=== PATIENT | male | born 1970 | race American Indian/Alaskan Native ===

== ENCOUNTER 2018-02-23 06:20 | Day surgery (SDC) | payer BC ==
[2018-02-23] MEDS ORDERED: NACL 0.9% 1000 ML 1,000 ML ONE (06:53)
[2018-02-23] MEDS ORDERED: WATER FOR IRRIG STERILE IR ONE (07:18)
[2018-02-23] MEDS ORDERED: WATER FOR IRRIG STERILE ONE (07:18)
[2018-02-23] MEDS ORDERED: NACL 0.9% 1000 ML 1,000 ML IV SCH (08:00)
--- NOTE | 2018-02-23 08:38 | Anesthesia Consultation ---
Anesthesia Consult and Med Hx Date of service: 02/23/18 - Airway Anesthetic Teeth Evaluation: Good ROM Head & Neck: Adequate Mental/Hyoid Distance: Adequate Mallampati Class: Class III Intubation Access Assessment: Possibly Difficult - Pulmonary Exam CTA: Yes - Cardiac Exam Cardiac Exam: RRR - Pre-Operative Health Status ASA Pre-Surgery Classification: ASA3 - Pre-Anesthesia Comment Pre-Anesthesia Comments: Fabián held 02/20/18 - Pulmonary Hx Sleep Apnea: Yes - Cardiovascular System Hx Peripheral Vascular Disease: Yes (DVT) - Central Nervous System Hx Seizures: Yes (childhood ) - Gastrointestinal Hx Ulcer: Yes - Endocrine Hx Insulin Dependent Diabetes: Yes - Other Systems Hx Obesity: Yes
--- NOTE | 2018-02-23 08:38 | Anesthesia Day of Surgery ---
Anesthesia Day of Surgery - Day of Surgery Patient Examined: Yes Patient H&P Reviewed: Yes Patient is NPO: Yes
[2018-02-23] MEDS ORDERED: DIPRIVAN 10 MG/ML IV ONE ×3 (08:42)
--- NOTE | 2018-02-23 09:06 | Short Stay Summary ---
Short Stay Documentation - Allergies and Medications Current Medications: Allergies No Known Allergies Allergy (Verified 02/22/18 09:19) Home Medications Medication Instructions Recorded Confirmed Last Taken Type Eliquis 5 mg PO BID 02/22/18 02/22/18 Unknown History Oscal 1 tab PO DAILY 02/22/18 02/22/18 Unknown History Vitamin D3 1 tab PO DAILY 02/22/18 02/22/18 Unknown History metFORMIN 500 mg PO BID 02/22/18 02/22/18 Unknown History Active Medications Sodium Chloride (Nacl 0.9% 1000 Ml) 1,000 mls @ 50 mls/hr IV DIRECT EDWIN Last Admin: 02/23/18 07:53 Dose: 50 mls/hr - Brief post op/procedure progress note Date of procedure: 02/23/18 Pre-op diagnosis: Colon cancer screening Post-op diagnosis: same Procedure: Colonoscopy Anesthesia: MAC Findings: as above Surgeon: CHRIS CHURCHILL Estimated blood loss: none Pathology: none Condition: stable - Disposition Condition at discharge: Stable Disposition: DC-01 TO HOME OR SELFCARE Short Stay Discharge Plan Activity: no restrictions Weight Bearing Status: Full Weight Bearing Diet: regular, low fat, low salt Follow up with: MAI WRAY MD [Primary Care Provider] - 7 Days
[2018-02-23 09:26] VITALS: BP 116/67
== END 2018-02-23 06:21 | disposition home or self-care (01) ==
LOC: GIO 06:20
PROVIDERS: ATTEND Internal Medicine Gastroenterology
DX: Z12.11 Encounter for screening for malignant neoplasm of colon (principal); K64.0 First degree hemorrhoids; I25.2 Old myocardial infarction; J45.909 Unspecified asthma, uncomplicated; G47.30 Sleep apnea, unspecified; E11.9 Type 2 diabetes mellitus without complications; K21.9 Gastro-esophageal reflux disease without esophagitis; E66.9 Obesity, unspecified; Z68.44 Body mass index [BMI] 60.0-69.9, adult; Z79.84 Long term (current) use of oral hypoglycemic drugs; Z79.899 Other long term (current) drug therapy; Z86.718 Personal history of other venous thrombosis and embolism; Z98.890 Other specified postprocedural states
CPT/HCPCS: 45378; 82962; J2704; J7030

== ENCOUNTER 2019-04-05 05:53 | Day surgery (SDC) | payer BC ==
[2019-04-05] MEDS ORDERED: SODIUM CHLORIDE 0.9% 1000 ML 1,000 ML IV SCH ×2 (06:00)
[2019-04-05] MEDS ORDERED: PROPOFOL 200 MG/20 ML VIAL IV ONE ×4 (07:11→07:57)
[2019-04-05] MEDS ORDERED: WATER FOR IRRIG STERILE 250 ML BOTTLE IR ONE (07:41)
--- NOTE | 2019-04-05 08:17 | Short Stay Summary ---
Short Stay Documentation - Allergies and Medications Current Medications: Allergies No Known Allergies Allergy (Verified 02/22/18 09:19) Home Medications Medication Instructions Recorded Confirmed Last Taken Type Eliquis 5 mg PO BID 02/22/18 02/22/18 Unknown History Oscal 1 tab PO DAILY 02/22/18 02/22/18 Unknown History Vitamin D3 1 tab PO DAILY 02/22/18 02/22/18 Unknown History metFORMIN 500 mg PO BID 02/22/18 02/22/18 Unknown History Active Medications Sodium Chloride (Nacl 0.9% 1000 Ml) 1,000 mls @ 50 mls/hr IV DIRECT EDWIN - Brief post op/procedure progress note Date of procedure: 04/05/19 Pre-op diagnosis: Colon cancer screening Post-op diagnosis: same (1.internal hemorrhoid 2. fair to poor prep) Procedure: Colonoscopy Anesthesia: MAC Findings: as above Surgeon: CHRIS CHURCHILL Estimated blood loss: none Pathology: none Condition: stable - Disposition Condition at discharge: Stable Disposition: DC-01 TO HOME OR SELFCARE Short Stay Discharge Plan Activity: no restrictions Weight Bearing Status: Full Weight Bearing Diet: regular Follow up with: MAI WRAY MD [Primary Care Provider] - 7 Days
[2019-04-05 08:46] VITALS: BP 135/81
--- NOTE | 2019-04-06 16:43 | Anesthesia Day of Surgery ---
Anesthesia Day of Surgery - Day of Surgery Patient Examined: Yes Patient H&P Reviewed: Yes Patient is NPO: Yes
--- NOTE | 2019-04-06 16:43 | Anesthesia Consultation ---
Anesthesia Consult and Med Hx Date of service: 04/06/19 - Airway Anesthetic Teeth Evaluation: Good ROM Head & Neck: Adequate Mental/Hyoid Distance: Adequate Mallampati Class: Class II Intubation Access Assessment: Good - Pulmonary Exam CTA: Yes - Cardiac Exam Cardiac Exam: RRR - Pre-Operative Health Status ASA Pre-Surgery Classification: ASA2 Proposed Anesthetic Plan: MAC - Pulmonary Hx Asthma: Yes SOB: Yes Hx Sleep Apnea: Yes - Cardiovascular System Hx Heart Attack/AMI: Yes Hx Peripheral Vascular Disease: Yes (DVT) - Central Nervous System Hx Seizures: Yes (childhood ) - Gastrointestinal Hx Ulcer: Yes - Endocrine Hx Insulin Dependent Diabetes: Yes - Other Systems Hx Obesity: Yes
--- NOTE | 2019-04-06 16:43 | Post Anesthesia Evaluation ---
- Post Anesthesia Evaluation Patient Participated: Yes Airway Patent: Yes Stable Respiratory Function: Yes Nausea/Vomiting: No Temp > 96.8F: Yes Pain Manageable: Yes Adequeate Hydration: Yes Anesthesia Complications: No Block Receding Appropriately: Not Applicable Patient on Ventilator: No
== END 2019-04-05 08:47 | disposition home or self-care (01) ==
LOC: GIO 05:53
PROVIDERS: ATTEND Internal Medicine Gastroenterology
DX: Z09 Encounter for follow-up examination after completed treatment for conditions other than malignant neoplasm (principal); K64.0 First degree hemorrhoids; E11.51 Type 2 diabetes mellitus with diabetic peripheral angiopathy without gangrene; J45.909 Unspecified asthma, uncomplicated; G47.30 Sleep apnea, unspecified; K21.9 Gastro-esophageal reflux disease without esophagitis; E66.9 Obesity, unspecified; Z68.44 Body mass index [BMI] 60.0-69.9, adult; Z79.899 Other long term (current) drug therapy; Z79.84 Long term (current) use of oral hypoglycemic drugs; Z98.890 Other specified postprocedural states
CPT/HCPCS: 45378; 82962; J2704; J7030

== ENCOUNTER 2020-02-07 09:55 | Day surgery (SDC) | payer BC ==
--- NOTE | 2020-02-05 10:23 | Anesthesia Consultation ---
Anesthesia Consult and Med Hx Date of service: 02/07/20 - Airway Anesthetic Teeth Evaluation: Good ROM Head & Neck: Adequate Mental/Hyoid Distance: Adequate Mallampati Class: Class I Intubation Access Assessment: Good - Pre-Operative Health Status ASA Pre-Surgery Classification: ASA3 Proposed Anesthetic Plan: General, MAC (MAC; GA if needed) - Pulmonary Hx Smoking: No Hx Asthma: Yes ( CHILD ONLY) Hx Respiratory Symptoms: Yes (Occasional dyspnea. +2FS) SOB: Yes (SOB. PE x 2 10/1991, 11/2012) Hx Sleep Apnea: Yes (DX SLEEP APNEA WITH CPAP USE.) - Cardiovascular System Hx Hypertension: No (2018-NST & ECHO) Hx Heart Attack/AMI: Yes (? MILD [place] 1995 PER H&P- PT DENIES) Hx Peripheral Vascular Disease: Yes (VENOUS INSUFFICIENCY LEGS) - Central Nervous System Hx Seizures: Yes ( CHILD- NEVER PLACED ON MEDS) - Gastrointestinal Hx Ulcer: Yes Hx Gastroesophageal Reflux Disease: Yes (Occasional; no RX) - Endocrine Hx Insulin Dependent Diabetes: Yes - Hematic Hx Sickle Cell Disease: No - Other Systems Hx Cancer: No Hx Obesity: Yes
[2020-02-05 10:37] LABS: INR 0.94 (0.87-1.13); Partial Thromboplastin Time 24.2 Sec. (24.2-36.6)
[2020-02-05 10:41] LABS: BUN/Creatinine Ratio 15; Blood Urea Nitrogen 12 mg/dL (9-20); Hemolysis Index 13
[2020-02-07] MEDS ORDERED: LACTATED RINGERS 1,000 ML ONE (10:05)
[2020-02-07] MEDS ORDERED: ONDANSETRON 4 MG/2 ML INJ IV PRN (10:30)
[2020-02-07] MEDS ORDERED: HYDROmorphone 1 MG/1 ML INJ IV PRN ×2 (10:30)
[2020-02-07] MEDS ORDERED: LACTATED RINGERS 1,000 ML IV SCH (11:00)
[2020-02-07] MEDS ORDERED: MIDAZOLAM 2 MG/2 ML INJ IV NR (11:00)
[2020-02-07] MEDS ORDERED: propofoL 200 MG/20 ML VIAL IV ONE (12:36)
[2020-02-07] MEDS ORDERED: fentaNYL 100 MCG/2 ML INJ ONE (12:36)
[2020-02-07] MEDS ORDERED: LIDOCAINE MPF (2%) 20 MG/1 ML VIAL 5 ML ONE (12:36)
[2020-02-07] MEDS ORDERED: ROCURONIUM 50 MG/5 ML INJ IV ONE (12:36)
[2020-02-07] MEDS ORDERED: BUPIVACAINE/PF (0.25%) 2.5 MG/ML 30 ML VIAL INFILTRATI ONE ×3 (12:37→13:27)
[2020-02-07] MEDS ORDERED: LIDOCAINE (1%) 10 MG/1 ML VIAL 20 ML MDV ONE (12:37)
[2020-02-07] MEDS ORDERED: KETAMINE/STERILE WATER 50 MG/ML SYRINGE ONE (12:56)
[2020-02-07] MEDS ORDERED: MIDAZOLAM 2 MG/2 ML INJ ONE (12:58)
[2020-02-07] MEDS ORDERED: LIDOCAINE (1%) 10 MG/1 ML VIAL 20 ML MDV INFILTRATI ONE (13:27)
[2020-02-07] MEDS ORDERED: SODIUM CHLORIDE 0.9% IRR 1,500 ML BOTTLE IR ONE (13:28)
[2020-02-07] MEDS ORDERED: ONDANSETRON 4 MG/2 ML INJ ONE (13:42)
[2020-02-07] MEDS ORDERED: SODIUM CHLORIDE 0.9% 1000 ML 1,000 ML ONE (13:51)
[2020-02-07] MEDS ORDERED: GLYCOPYRROLATE 0.4 MG/2 ML INJ ONE (14:00)
--- NOTE | 2020-02-07 14:16 | Short Stay Summary ---
Short Stay Documentation Date of service: 02/07/20 - History Principal diagnosis: back cysts x2 H&P: obtained from office - Allergies and Medications Current Medications: Allergies No Known Allergies Allergy (Verified 02/22/18 09:19) Home Medications Medication Instructions Recorded Confirmed Last Taken Type Eliquis 5 mg PO BID 02/22/18 02/07/20 02/01/20 18:00 History Oscal 1 tab PO DAILY 02/22/18 02/07/20 02/01/20 09:00 History Vitamin D3 50,000 unit PO QWEEK 02/22/18 02/07/20 02/01/20 09:00 History metFORMIN 850 mg PO BID 02/22/18 02/07/20 02/01/20 18:00 History Naproxen Sodium [Aleve] 220 mg PO PRN PRN 02/04/20 02/07/20 02/01/20 18:00 History Active Medications Hydromorphone HCl (Dilaudid) 0.5 mg IV Q10MIN PRN PRN Reason: Pain , Severe (7-10) Hydromorphone HCl (Dilaudid) 0.25 mg IV Q10MIN PRN PRN Reason: Pain, Moderate (4-6) Cefazolin Sodium 3 gm/ Sodium (Chloride) 100 mls @ 100 mls/30 min IV PREOP NR; Protocol Stop: 02/07/20 21:00 Lactated Ringer's (Lactated Ringers) 1,000 mls @ 125 mls/hr IV DIRECT EDWIN Last Admin: 02/07/20 10:40 Dose: 125 mls/hr Documented by: Midazolam HCl (Versed) 2 mg IV PREOP NR Stop: 02/07/20 23:59 Last Admin: 02/07/20 10:45 Dose: 2 mg Documented by: Ondansetron HCl (Zofran) 4 mg IV ONCE PRN PRN Reason: Nausea And Vomiting - Brief post op/procedure progress note Date of procedure: 02/07/20 Pre-op diagnosis: cyst of back x2 Post-op diagnosis: same Procedure: excision of cyst of back x2 Anesthesia: MAC, local Findings: Cyst on right - 3 cm with gelatinous material. Chronic inflammation of skin.. Cyst on left - 1cm with gelatinous/liquid fluid. Chronic inflammation of skin Surgeon: PATSY DEAN Estimated blood loss: minimal Pathology: list (cyst of back right, cyst of back left) Specimen disposition: to lab Condition: stable - Hospital course Hospital course: Pt observed in PACU and discharged to home in stable condition when criteria met - Disposition Condition at discharge: Good Short Stay Discharge Plan Activity: other (Avoid bending forward. This will place tension on your sutures) Diet: regular Wound: per your surgeon's advice, other (Remove outer dressing in 2 days. Remove 3 packing strips from within the wound, two on the right and one on the left. Clean area with soap and water, pat dry and cover with gauze and tape. Change dressing every day. ) Additional Instructions: Wound care: 1. Remove outer dressing in 2 days. 2. Remove 3 (THREE) packing strips from within the wound, two on the right and one on the left. 3. Clean area with soap and water, pat dry and cover with gauze and tape. Change dressing every day. 4. Do not remove stitches. Resume eliquis tomorrow 02/08/20 Follow up with: MAI WRAY MD [Primary Care Provider] - 7 Days PATSY DEAN DO [Staff Physician] - 10 Days Prescriptions: HYDROcodone/APAP 5-325 [[place] 5/325] 1 each PO Q6HR PRN #10 tablet PRN Reason: Pain , Severe (7-10)
--- NOTE | 2020-02-07 14:30 | Anesthesia Day of Surgery ---
Anesthesia Day of Surgery - Day of Surgery Patient Examined: Yes Patient H&P Reviewed: Yes Patient is NPO: Yes
[2020-02-07] MEDS ORDERED: HYDROcodone/ACETAMINOPHEN 5-325 MG TAB PO PRN (14:41)
[2020-02-07 15:17] VITALS: BP 140/90
--- NOTE | 2020-02-08 10:42 | Operative Report ---
Operative Report Operative Report: Date of procedure: 02/07/20 Pre-op diagnosis: cyst of back x2 Post-op diagnosis: same Procedure: excision of cyst of back x2 Anesthesia: MAC, local Findings: Cyst on right - 3 cm with gelatinous material. Chronic inflammation of skin.. Cyst on left - 1cm with gelatinous/liquid fluid. Chronic inflammation of skin Surgeon: PATSY DEAN Estimated blood loss: minimal Pathology: list (cyst of back right, cyst of back left) Specimen disposition: to lab Condition: stable - Hospital course Hospital course: Pt observed in PACU and discharged to home in stable condition when criteria met - Disposition Condition at discharge: Good HPI and indication: Patient is a 49-year-old male with a history of morbid obesity, DVT on Eliquis who presented to the surgery clinic for evaluation of cysts on his back. The patient wanted the cyst removed. All risk, benefits, alternatives to surgery were discussed with the patient questions answered. Consent was obtained. Patient was cleared by his medical doctor to hold Eliquis and it was held 5 days before surgery. Procedure in detail: Patient is identified in the preoperative area, taken back to operating room placed operating table in prone position. All bony prominences were padded appropriately and the mid and lower back were prepped and draped in usual sterile fashion a timeout performed. There was chronic inflammation of the skin at both sites. I for started with the cyst on the left. Local anesthetic was infiltrated to skin and subcutaneous tissue at the intended incision site. An elliptical incision was made over the area of the cyst using a 15 blade. Dissection was carried down through skin and subcutaneous tissue using Bovie electrocautery until the cyst was identified. The cyst was circumferentially dissected free from the surrounding and underlying tissue using a combination of electrocautery and blunt dissection with a hemostat. Once healthy subcutaneous tissue was seen the cyst was excised in completion. It was measured at 1 cm. There was gelatinous material along with scott fluid in the cyst. The wound was then irrigated and checked for hemostasis which was carefully ensured. The wound was then packed with gauze. I then turned my attention to the cyst on the right. Local anesthetic was infiltrated to skin and subcutaneous tissue at the intended incision site. And elliptical incision was made using a 15 blade and dissection carried down through skin and subcutaneous tissue using Bovie electrocautery. The cyst was excised in a similar fashion to the cyst on the left side. The cyst measured approximately 3 cm. There was gelatinous material in the cyst. The wound was then irrigated and checked for hemostasis which was carefully ensured. Both wounds were then inspected and there was no bleeding seen. Subcutaneous flaps were created and the incisions closed with a combination of interrupted 2- 0 nylon sutures and horizontal mattress sutures. Due to the location of the cysts, there was some tension on the incisions. The right side was packed with 2 pieces of Telfa in between the incision to allow for drainage. The left side was packed with 1 piece of Telfa. The skin was cleansed and the wounds covered with 4 x 4 gauze ABD pad and tape. The patient tolerated the procedure well. At the end of the case, all sponge, instrument, sharp counts were correct x2. The patient was awoken from anesthesia transferred to the [facility] and taken to PACU in stable condition.
== END 2020-02-07 09:56 | disposition home or self-care (01) ==
LOC: OR 09:55
PROVIDERS: ATTEND Surgery
DX: R22.2 Localized swelling, mass and lump, trunk (principal); Z20.828 Contact with and (suspected) exposure to other viral communicable diseases; L72.0 Epidermal cyst; G43.909 Migraine, unspecified, not intractable, without status migrainosus; E11.51 Type 2 diabetes mellitus with diabetic peripheral angiopathy without gangrene; I10 Essential (primary) hypertension; G47.30 Sleep apnea, unspecified; K21.9 Gastro-esophageal reflux disease without esophagitis; J45.909 Unspecified asthma, uncomplicated; E66.9 Obesity, unspecified; Z86.718 Personal history of other venous thrombosis and embolism; Z79.84 Long term (current) use of oral hypoglycemic drugs; Z68.43 Body mass index [BMI] 50.0-59.9, adult; Z98.890 Other specified postprocedural states; Z86.2 Personal history of diseases of the blood and blood-forming organs and certain disorders involving the immune mechanism
CPT/HCPCS: 11401; 11403; 36415; 80048; 82962; 85610; 85730; 88304; J0690; J2250; J2405; J2704; J3010; J3490; J7030; J7120; U0003

== ENCOUNTER 2020-03-10 11:16 | Outpatient (CLI) | payer BC ==
[2020-03-10] MEDS ORDERED: LIDOCAINE (4%) 40 MG/ML TOPICAL SOLN 50 ML BOTTLE TP ONE (11:22)
== END 2020-03-10 11:17 | disposition home or self-care (01) ==
LOC: WOUND 11:16
PROVIDERS: ATTEND Surgery
DX: T81.89XD Other complications of procedures, not elsewhere classified, subsequent encounter (principal); K21.9 Gastro-esophageal reflux disease without esophagitis; G47.30 Sleep apnea, unspecified; E66.01 Morbid (severe) obesity due to excess calories; Z68.43 Body mass index [BMI] 50.0-59.9, adult; Z86.718 Personal history of other venous thrombosis and embolism; Z90.89 Acquired absence of other organs; Y83.8 Other surgical procedures as the cause of abnormal reaction of the patient, or of later complication, without mention of misadventure at the time of the procedure

== ENCOUNTER 2020-03-24 10:58 | Outpatient (CLI) | payer BC ==
[2020-03-24] MEDS ORDERED: LIDOCAINE (4%) 40 MG/ML TOPICAL SOLN 50 ML BOTTLE TP SCH (10:59)
== END 2020-03-24 10:59 | disposition home or self-care (01) ==
LOC: WOUND 10:58
PROVIDERS: ATTEND Surgery
DX: T81.89XD Other complications of procedures, not elsewhere classified, subsequent encounter (principal); K21.9 Gastro-esophageal reflux disease without esophagitis; G47.30 Sleep apnea, unspecified; E66.01 Morbid (severe) obesity due to excess calories; Z68.43 Body mass index [BMI] 50.0-59.9, adult; Z86.718 Personal history of other venous thrombosis and embolism; Z90.89 Acquired absence of other organs; Y83.8 Other surgical procedures as the cause of abnormal reaction of the patient, or of later complication, without mention of misadventure at the time of the procedure
CPT/HCPCS: 99213; G0463